=== PATIENT | male | born 1935 | race Caucasian/White ===

== ENCOUNTER 2018-09-01 15:47 | Emergency (ER) | payer MEDICARE, BC ==
[~2018-09-01] VITALS: Ht 172.7 cm; Wt 72.6 kg
--- NOTE | 2018-09-01 16:10 | NUR ---
ED Nurse Note: pt brought in to ER by ambulance from [facility] for check up. per EMS, by 1 pm pt went to bathroom and it took more than usual. when SNF staff opened the door pt was sitting on the bathroom floor. pt denied fall or injury. pt stated "Nothing happened, I just wanted to sit on the floor." pt aao x2 and follows commands. pt calm and cooperative. skin clean and intact. no head injury or bump noted, however, pt has surgical scar in upper medial head which is healed. the head surgical site is clean and intact.
[2018-09-01 16:21] VITALS: BP 108/77
[2018-09-01 16:55] LABS: BASOPHILS % (AUTO) 0.9 % (0.0-2.0); EOSINOPHILS % (AUTO) 2.9 % (0.0-3.0); HEMATOCRIT 34.3 % (42.0-52.0); HEMOGLOBIN 11.5 G/DL (14.2-18.0); LYMPHOCYTES % (AUTO) 18.1 % (20.0-45.0); MEAN CORPUSCULAR VOLUME 87 FL (80-99); MONOCYTES % (AUTO) 14.7 % (1.0-10.0); NEUTROPHILS % (AUTO) 63.5 % (45.0-75.0); PLATELET COUNT 374 K/UL (150-450); RED BLOOD COUNT 3.95 M/UL (4.70-6.10); RED CELL DISTRIBUTION WIDTH 12.2 % (11.6-14.8); WHITE BLOOD COUNT 10.3 K/UL (4.8-10.8)
[2018-09-01 17:10] LABS: ANION GAP 9 mmol/L (5-15); BLOOD UREA NITROGEN 28 mg/dL (7-18); CALCIUM 9.4 MG/DL (8.5-10.1); CARBON DIOXIDE 27 MMOL/L (21-32); CHLORIDE 102 MMOL/L (98-107); CREATININE 1.4 MG/DL (0.55-1.30); POTASSIUM 4.1 MMOL/L (3.5-5.1); SODIUM 138 MMOL/L (136-145)
[2018-09-01 17:21] LABS: ALANINE AMINOTRANSFERASE 23 U/L (12-78); ALBUMIN/GLOBULIN RATIO 0.7 (1.0-2.7); ALKALINE PHOSPHATASE 81 U/L (46-116); ASPARTATE AMINO TRANSFERASE 14 U/L (15-37); BILIRUBIN,TOTAL 0.7 MG/DL (0.2-1.0)
--- NOTE | 2018-09-01 17:47 | NUR ---
ED Nurse Note: pt went to CT scan in stable condition.
[2018-09-01 17:57] LABS: APPEARANCE,URINE VERY CLOUDY; BILIRUBIN, URINE NEGATIVE (NEGATIVE); GLUCOSE, URINE (UA) NEGATIVE (NEGATIVE); KETONES,URINE NEGATIVE (NEGATIVE); LEUKOCYTE ESTERASE ,URINE 3+ (NEGATIVE); NITRITE,URINE POSITIVE (NEGATIVE); PH,URINE 8 (4.5-8.0); PROTEIN,URINE 4+ (NEGATIVE); UROBILINOGEN,URINE NORMAL MG/DL (0.0-1.0)
[2018-09-01 17:59] LABS: COLOR,URINE YELLOW
--- NOTE | 2018-09-01 18:13 | Diagnostic Imaging Report ---
EXAM: CT Head Without Intravenous Contrast CLINICAL HISTORY: AMS TECHNIQUE: Axial computed tomography images of the head/brain without intravenous contrast. CTDI is 70.38 mGy and DLP is 1484.95 mGy-cm. One or more of the following dose reduction techniques were used: automated exposure control, adjustment of the mA and/or kV according to patient size, use of iterative reconstruction technique. COMPARISON: none available FINDINGS: Brain: Bilateral subdural hematomas, mixed density are present measuring up to 8 mm depth over the right frontal lobe and 5 mm depth of the left frontal lobe. No midline shift. Tiny lacunar infarct in the left caudate head and low-density in the inferior right frontal lobe, compatible with a nonhemorrhagic contusion are noted. No significant white matter disease. Ventricles: Unremarkable. No ventriculomegaly. Bones/joints: Postoperative changes from bilateral frontal craniotomies are evident. Round 10 mm circumscribed lucency in the left inferior occipital bone could represent large pacchionian granulation. No acute or aggressive osseous lesions noted. Soft tissues: Unremarkable. Sinuses: Unremarkable as visualized. No acute sinusitis. Mastoid air cells: Unremarkable as visualized. No mastoid effusion. 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 Residual extra-axial fluid collections measure 8 mm on the right and 5 mm on the left. No acute intraparenchymal hemorrhage, midline shift or obvious acute infarct. Correlation with prior imaging could be beneficial.
--- NOTE | 2018-09-01 18:17 | Diagnostic Imaging Report ---
EXAM: CT Cervical Spine Without Intravenous Contrast CLINICAL HISTORY: PAIN TECHNIQUE: Axial computed tomography images of the cervical spine without intravenous contrast. CTDI is 11.65 mGy and DLP is 242.86 mGy-cm. One or more of the following dose reduction techniques were used: automated exposure control, adjustment of the mA and/or kV according to patient size, use of iterative reconstruction technique. COMPARISON: same day head CT FINDINGS: Vertebrae: Multilevel disc degenerative spondylosis is present, most conspicuous at C4-C5 through C6-C7. Anatomic alignment. No acute fracture. Discs/spinal canal/neural foramina: Bilateral foraminal narrowing is present most conspicuous at C5-C6 and C6-C7 due to uncovertebral hypertrophy. Soft tissues: Unremarkable. 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
[2018-09-01] MEDS ORDERED: cefTRIAXone 1 GM in NS 55 ML IVPB ONE (18:30)
--- NOTE | 2018-09-01 18:41 | Emergency Room Report ---
History of Present Illness General Chief Complaint: Multiple Trauma/Fall Source: Medical Record, EMS Present Illness HPI Patient is an 83-year-old male sent in from [facility] for possible fall. Patient had recent brain surgery after subdural hematoma and had prolonged hospital stay at [facility]. Patient was noted to have increased confusion at baseline. He had a fall on and subsequent surgery on 07/27. Allergies: Coded Allergies: No Known Allergies (Unverified , 09/01/18) Patient History Past Medical History: see triage record Reviewed Nursing Documentation: PMH: Agreed; PSxH: Agreed Review of Systems All Other Systems: limited - by mental status Physical Exam Vital Signs Date Time Temp Pulse Resp B/P (MAP) Pulse Ox O2 Delivery O2 Flow Rate FiO2 09/01/18 15:48 98.1 83 14 132/82 (99) 99 Room Air General Appearance: alert, thin, Chronically Ill Head: other - post surgical changes ENT: hearing grossly normal Neck: full range of motion, supple, thyroid normal Respiratory: chest non-tender, lungs clear Cardiovascular #1: normal inspection Gastrointestinal: normal inspection Musculoskeletal: normal inspection, back normal Neurologic: normal inspection, alert, responsive, dog food dough mixer III-XII nml as tested, motor strength/tone normal Psychiatric: depressed affect, other - confused Medical Decision Making Diagnostic Impression: Primary Impression: Fall Additional Impression: Bilateral subdural hematomas ER Course Patient presented after a fall. Differential diagnosis include was not limited to fracture, subdural hematoma, spinal fracture, urinary tract infection among others. CT imaging of the head and cervical spine was ordered due to patient 's recent fall and prior surgery. CT of Headread by radiology showed mixed density subdural hematomas. Patient was discussed with the patient's [employer] Marycruz Lui. Patient will be transferred for higher level of care. Patient was discussed with Dr. Gaviria from [facility] for higher level of care transfer. Labs Test 09/01/18 16:40 09/01/18 17:00 White Blood Count 10.3 K/UL (4.8-10.8) Red Blood Count 3.95 M/UL (4.70-6.10) Hemoglobin 11.5 G/DL (14.2-18.0) Hematocrit 34.3 % (42.0-52.0) Mean Corpuscular Volume 87 FL (80-99) Mean Corpuscular Hemoglobin 29.2 PG (27.0-31.0) Mean Corpuscular Hemoglobin Concent 33.7 G/DL (32.0-36.0) Red Cell Distribution Width 12.2 % (11.6-14.8) Platelet Count 374 K/UL (150-450) Mean Platelet Volume 4.9 FL (6.5-10.1) Neutrophils (%) (Auto) 63.5 % (45.0-75.0) Lymphocytes (%) (Auto) 18.1 % (20.0-45.0) Monocytes (%) (Auto) 14.7 % (1.0-10.0) Eosinophils (%) (Auto) 2.9 % (0.0-3.0) Basophils (%) (Auto) 0.9 % (0.0-2.0) Sodium Level 138 MMOL/L (136-145) Potassium Level 4.1 MMOL/L (3.5-5.1) Chloride Level 102 MMOL/L (98-107) Carbon Dioxide Level 27 MMOL/L (21-32) Anion Gap 9 mmol/L (5-15) Blood Urea Nitrogen 28 mg/dL (7-18) Creatinine 1.4 MG/DL (0.55-1.30) Estimat Glomerular Filtration Rate mL/min (>60) Glucose Level 111 MG/DL (74-106) Calcium Level 9.4 MG/DL (8.5-10.1) Total Bilirubin 0.7 MG/DL (0.2-1.0) Aspartate Amino Transf (AST/SGOT) 14 U/L (15-37) Alanine Aminotransferase (ALT/SGPT) 23 U/L (12-78) Alkaline Phosphatase 81 U/L (46-116) Troponin I 0.000 ng/mL (0.000-0.056) Total Protein 7.4 G/DL (6.4-8.2) Albumin 3.0 G/DL (3.4-5.0) Globulin 4.4 g/dL Albumin/Globulin Ratio 0.7 (1.0-2.7) Thyroid Stimulating Hormone (TSH) 1.292 uiU/mL (0.358-3.740) Urine Color Yellow Urine Appearance Very cloudy Urine pH 8 (4.5-8.0) Urine Specific [place] 1.010 (1.005-1.035) Urine Protein 4+ (NEGATIVE) Urine Glucose (UA) Negative (NEGATIVE) Urine Ketones Negative (NEGATIVE) Urine Blood 4+ (NEGATIVE) Urine Nitrite Positive (NEGATIVE) Urine Bilirubin Negative (NEGATIVE) Urine Urobilinogen Normal MG/DL (0.0-1.0) Urine Leukocyte Esterase 3+ (NEGATIVE) Urine RBC 5-10 /HPF (0 - 0) Urine WBC Tntc /HPF (0 - 0) Urine Squamous Epithelial Cells None /LPF (NONE/OCC) Urine Bacteria Many /HPF (NONE) Last Vital Signs Date Time Temp Pulse Resp B/P (MAP) Pulse Ox O2 Delivery O2 Flow Rate FiO2 09/01/18 16:21 79 16 Room Air 09/01/18 16:21 98.1 108/77 99 Status: unchanged Disposition: [facility] Condition: Serious Bronson Cruz MD Sep 01, 2018 18:41
--- NOTE | 2018-09-01 19:10 | NUR ---
HAND-OFF: Report given to JEREMIAH Munguia. no orders to carry at this moment.
--- NOTE | 2018-09-01 19:19 | NUR ---
ED Nurse Note: Received report from Manolo Myers RN. P in bed awake, with tele leads and vital signs hookups pulled off. Pt pleasantly confused, AAOx2-3. Will possibly be transferred to another hospital per insurance. CN aware. Awaiting further instruction. Will continue to monitor.
[2018-09-01] MEDS ORDERED: levETIRAcetam 1,000mg/NS100ml 100 ML IVPB ONE ×2 (19:30→22:00)
[2018-09-01 22:17] VITALS: BP 128/79
--- NOTE | 2018-09-04 15:06 | Cardiology Report ---
APPROVED REPORT EKG Measurement Heart [id number] Normal sinus rhythm Septal infarct, age undetermined Abnormal ECG
== END 2018-09-01 22:16 | disposition short-term general hospital (02) ==
LOC: EDBD 15:47 → EMR 19:02
DX: S06.5X9A Traumatic subdural hemorrhage with loss of consciousness of unspecified duration, initial encounter (principal); W19.XXXA Unspecified fall, initial encounter; Y92.9 Unspecified place or not applicable
CPT/HCPCS: 36415; 70450; 72125; 80053; 81001; 84443; 84484; 85025; 85610; 85730; 87086; 87181; 93005; 96365; 96375; 99284; J0696; J1953